=== PATIENT | female | born 1955 | race Caucasian/White ===

== ENCOUNTER 2016-11-29 12:48 | Inpatient (IN) | payer OTHER ==
[~2016-11-29] VITALS: Ht 165.1 cm; Wt 117.9 kg
[2016-11-29] VITALS (10 sets, daily range): BP systolic 107–122; BP diastolic 50–79
--- NOTE | 2016-11-29 12:55 | NUR ---
DR VALENCIA AT THE BEDSIDE FOR EVAL AND EXAM.
[2016-11-29 13:35] LABS: BILIRUBIN,DIRECT 0.1 mg/dL (0.0-0.2); BILIRUBIN,TOTAL 0.5 mg/dL (0.2-1.0); CALCIUM 7.8 mg/dL (8.5-10.1); CREATININE 0.6 mg/dL (0.6-1.3); POTASSIUM 3.7 mmol/L (3.5-5.1); TOTAL PROTEIN, SERUM 6.6 g/dL (6.4-8.2)
[2016-11-29 14:43] LABS: BASOPHILS % (AUTO) 0.6 % (0.0-2.0); EOSINOPHILS # (AUTO) 0.1 K/uL (0.0-0.7); EOSINOPHILS % (AUTO) 2.2 % (0.0-7.0); LYMPHOCYTES # (AUTO) 0.9 K/uL (0.8-4.8); LYMPHOCYTES % (AUTO) 20.8 % (20.5-51.5); MEAN CORPUSCULAR HEMOGLOBIN 18.2 uug (27.0-31.0); MEAN CORPUSCULAR HGB CONC 29 g/dL (32.0-37.0); MEAN CORPUSCULAR VOLUME 63.7 fL (81.0-99.0); MONOCYTES # (AUTO) 0.5 K/uL (0.1-1.30); MONOCYTES % (AUTO) 12.6 % (0.0-11.0); NEUTROPHILS # (AUTO) 2.7 K/uL (1.8-8.9); NEUTROPHILS % (AUTO) 63.8 % (38.5-71.5); PLATELET COUNT (AUTO) 318 K/uL (150-450); RED BLOOD CELL COUNT(AUTO) 2.71 MIL/uL (4.20-5.40); WHITE BLOOD COUNT (AUTO) 4.2 K/uL (4.0-11.2)
[2016-11-29 14:45] LABS: HEMATOCRIT 17.3 % (37.0-47.0); HEMOGLOBIN 4.9 g/dL (12.0-16.0)
[2016-11-29] MEDS ORDERED: IV NORMAL SALINE 1000 ML BAG IV ONE (14:45)
[2016-11-29 14:55] LABS: BAND % (MANUAL) 1 % (0-10); EOSINOPHILS % (MANUAL) 1 % (0-8); LYMPHOCYTES % (MANUAL) 24 % (20-40); MONOCYTES % (MANUAL) 11 % (2-10); NEUTROPHILS % (MANUAL) 61 % (42-75)
[2016-11-29 14:56] LABS: BASOPHILS % (MANUAL) 2 % (0-2)
[2016-11-29 14:57] LABS: ANISOCYTOSIS 3+; HYPOCHROMASIA 3+; PLATELET ESTIMATE ADEQU
[2016-11-29 14:58] LABS: OVALOCYTES 1+; TEAR DROP CELLS 1+
[2016-11-29] MEDS ORDERED: MAGNESIUM HYDROXIDE 30 ML LIQUID UDC PO PRN (15:00)
[2016-11-29] MEDS ORDERED: MORPHINE SULFATE 2 MG/1 ML DISP.SYRIN IV PRN (15:00)
[2016-11-29] MEDS ORDERED: ONDANSETRON 4 MG/2 ML VIAL IV PRN (15:00)
--- NOTE | 2016-11-29 15:02 | NUR ---
PT RESTING IN BED DRINKING FLUIDS, DENIES PAIN.
[2016-11-29] MEDS ORDERED: [UNRECOGNIZED DRUG - REMARK] PO (15:24)
--- NOTE | 2016-11-29 15:57 | NUR ---
BELONGING LIST COMPLETED. NOT CANDIDATE FOR MRSA.
[2016-11-29 15:58] LABS: IRON, SERUM 13 ug/dL (50-175)
--- NOTE | 2016-11-29 16:50 | NUR ---
NEW PATIENT FROM ER TO ROOM 230 AWAKE ALERT COOPERATE WELL NO SOB OR PAIN VS TAKEN STABLE ON FALL PRECAUTION CALL SCHWARTZ IN REACH AND INSTRUCTION TO CALL WHEN NEEDED BED ALARM ON
[2016-11-29] MEDS: PANTOPRAZOLE SODIUM 40 MG TABLET.DR PO SCH ×2 (17:00→19:00)
--- NOTE | 2016-11-29 17:30 | NUR ---
KEEP NPO AT THIS TIME FOR EGD TONIGHT CONSENT SIGNS BLOOD DRAWN AT BEDSIDE X1
[2016-11-29] MEDS: IV NS 1000 ML 1,000 ML IV PRN (17:43)
--- NOTE | 2016-11-29 18:10 | NUR ---
START FIRST UNIT OF BLOOD TODAY VS STABLE NO REACTION NOTED RESTING CLOSED OBSERVATION
--- NOTE | 2016-11-29 21:11 | NUR ---
Patient tolerated 1st unit PRBC. No signs of transfusion reaction noted.
--- NOTE | 2016-11-29 21:40 | NUR ---
Second unit PRBC started.
[2016-11-29] MEDS: FERROUS SULFATE 325 MG TABEC PO SCH (22:02)
[2016-11-29] MEDS ORDERED: FERROUS SULFATE 325 MG TABEC PO ONE (23:15)
--- NOTE | 2016-11-29 23:59 | NUR ---
Second unit PRBC tolerated. Vital signs are stable.
[2016-11-30] VITALS (21 sets, daily range): BP systolic 110–159; BP diastolic 64–94
--- NOTE | 2016-11-30 03:16 | NUR ---
3 units PRBC completed. Patient tolerated, no acute resp distress.
[2016-11-30 03:28] LABS: *BILIRUBIN,URIN NEGATIVE (NEGATIVE); *BLOOD, URINE NEGATIVE (NEGATIVE); *CLARITY,URINE SLIGHTLY CLOUDY (CLEAR); *COLOR,URINE YELLOW (YELLOW); *KETONES,URINE NEGATIVE (NEGATIVE); *PROTEIN,URINE NEGATIVE (NEGATIVE); *UROBILINOGEN,URINE 0.2 E.U./dl (NORMAL); NITRITE, URINE NEGATIVE (NEGATIVE); PH,URINE 6.5 (5.0-8.0); UGLUCOSE NEGATIVE (NEGATIVE)
[2016-11-30 03:30] LABS: LEUKOCYTE ESTERASE ,URINE TRACE (NEGATIVE)
[2016-11-30 03:38] LABS: BACTERIA,URINE FEW /HPF (NONE SEEN); RBC,URINE 0-3 /HPF (0-3); SQUAMOUS EPITHELIAL CELL,UR MODERATE /HPF (NONE SEEN)
--- NOTE | 2016-11-30 08:00 | NUR ---
awake alert cooperate well no pain or sob at this time ON FALL /ASPIRATION PRECAUTION CALL SCHWARTZ IN REACH
[2016-11-30 08:03] LABS: ALANINE AMINOTRANSFERASE 14 U/L (14-59); ALBUMIN 3.4 g/dL (3.4-5.0); ALKALINE PHOSPHATASE 67 U/L (50-136); ASPARTATE AMINOTRANSFERASE 10 U/L (15-37); BILIRUBIN,TOTAL 0.7 mg/dL (0.2-1.0); CALCIUM 7.7 mg/dL (8.5-10.1); CARBON DIOXIDE 26 mmol/L (21-32); CHLORIDE 109 mmol/L (98-107); CHOLESTEROL 97 mg/dL (<200); GFR > 130 mL/min (>60); GLUCOSE 109 mg/dL (74-106); HDL CHOLESTEROL 33 mg/dL (40-60); PHOSPHOROUS 4.8 mg/dL (2.5-4.9); POTASSIUM 3.8 mmol/L (3.5-5.1); SODIUM SERUM 145 mmol/L (136-145); TOTAL PROTEIN, SERUM 6.2 g/dL (6.4-8.2); TRIGLYCERIDES 67 MG/DL (30-150); UREA NITROGEN, BLOOD 4 mg/dL (7-18)
[2016-11-30 08:09] LABS: CREATININE 0.4 mg/dL (0.6-1.3)
[2016-11-30 08:18] LABS: BASOPHILS % (AUTO) 0.1 % (0.0-2.0); EOSINOPHILS # (AUTO) 0.1 K/uL (0.0-0.7); EOSINOPHILS % (AUTO) 1.9 % (0.0-7.0); LYMPHOCYTES # (AUTO) 1.2 K/uL (0.8-4.8); LYMPHOCYTES % (AUTO) 21.5 % (20.5-51.5); MEAN CORPUSCULAR HEMOGLOBIN 21.4 uug (27.0-31.0); MEAN CORPUSCULAR HGB CONC 31 g/dL (32.0-37.0); MONOCYTES # (AUTO) 0.6 K/uL (0.1-1.30); MONOCYTES % (AUTO) 9.9 % (0.0-11.0); NEUTROPHILS # (AUTO) 3.7 K/uL (1.8-8.9); NEUTROPHILS % (AUTO) 66.6 % (38.5-71.5); RED CELL DISTRIBUTION WIDTH 26.5 % (11.5-14.5)
[2016-11-30 08:26] LABS: HEMATOCRIT 24.6 % (37.0-47.0); HEMOGLOBIN 7.5 g/dL (12.0-16.0); MEAN CORPUSCULAR VOLUME 69.8 fL (81.0-99.0); PLATELET COUNT (AUTO) 196 K/uL (150-450); RED BLOOD CELL COUNT(AUTO) 3.52 MIL/uL (4.20-5.40); THYROID STIMULATING HORMONE 0.838 mIU/mL (0.358-3.740); WHITE BLOOD COUNT (AUTO) 5.6 K/uL (4.0-11.2)
[2016-11-30] MEDS: PANTOPRAZOLE SODIUM 40 MG TABLET.DR PO SCH (08:44)
[2016-11-30] MEDS: FERROUS SULFATE 325 MG TABEC PO SCH ×2 (08:44→20:53)
[2016-11-30] MEDS: ACETAMINOPHEN 325 MG TABLET PO PRN ×2 (08:45→16:06)
--- NOTE | 2016-11-30 08:50 | NUR ---
DR FUNES SEEN LAB RESULT AND ORDER 2 MORE PRBC TODAY RESTING QUIET SCHEDULE FOR EGD TODAY AT 1200PM,PT WAS INFORM
[2016-11-30 09:30] LABS: EOSINOPHILS % (MANUAL) 3 % (0-8); MONOCYTES % (MANUAL) 7 % (2-10); NEUTROPHILS % (MANUAL) 62 % (42-75)
[2016-11-30 09:33] LABS: LYMPHOCYTES % (MANUAL) 27 % (20-40); METAMYELOCYTES % 1 % (0-1); PLATELET ESTIMATE ADEQUATE
[2016-11-30 09:34] LABS: ANISOCYTOSIS 3+; HYPOCHROMASIA 2+
[2016-11-30 09:35] LABS: OVALOCYTES 2+; TEAR DROP CELLS 1+
--- NOTE | 2016-11-30 10:30 | NUR ---
BLOOD BANK WAS CALL REGARDING PRBC ORDER STATE BLOOD DOES NOT READY YET AND WILL CALL WHEN IT IS AVAILABLE
--- NOTE | 2016-11-30 11:35 | NUR ---
START FIRST UNIT OF PRBC TODAY OMAR WELL NO REACTION VS STABLE
--- NOTE | 2016-11-30 11:45 | NUR ---
TO GI LAB VIA BED CONDITION STABLE NO SOB OR PAIN
--- NOTE | 2016-11-30 12:00 | NUR ---
VS TAKEN IN OR /GI LAB WHEN PATIENT WAS GOING FOR EGD DURING BLOOD TRANSFUSION
--- NOTE | 2016-11-30 12:45 | NUR ---
BACK TO ROOM VS TAKEN STABLE STILL CONTINUE BLOOD TRANSFUSION NO N/V OR ABD PAIN START PO LUNCH ORDER C/O OF PAIN /TENDER ON IV SITE SLIGHTLY REDNESS AND SMALL BRUISE AND BUMP IV WAS D/C AT THIS TIME ,WILL RESTART A NEW LINE
--- NOTE | 2016-11-30 13:30 | NUR ---
IV START ON RT UPPER ARM #20 AND CONTINUE BLOOD TRANSFUSION EAT LUNCH WITH GOOD APPETITE
[2016-11-30] MEDS ORDERED: ETOMIDATE 20 MG/10 ML VIAL MC ONE (15:00)
[2016-11-30] MEDS ORDERED: PROPOFOL 200 MG/20 ML BOTTLE IV ONE (15:00)
[2016-11-30] MEDS ORDERED: LIDOCAINE HCL 1% 20 ML VIAL MC ONE (15:00)
--- NOTE | 2016-11-30 15:00 | NUR ---
BL TRANS FINISHED NO REACTION VS STABLE
--- NOTE | 2016-11-30 15:25 | NUR ---
START SECOND UNIT OF PRBC OMAR PROCEDURE WELL NO REACTION VS TAKEN STABLE NO PAIN OR SOB
[2016-11-30] MEDS: IV NS 1000 ML 1,000 ML IV PRN (16:08)
[2016-11-30 16:44] LABS: *OCCULT BLOOD STOOL POSITIVE (NEGATIVE)
--- NOTE | 2016-11-30 17:00 | NUR ---
RESTING QUIET NO ACUTE DISTRESS SAFETY MEASURE PROVIDED CALL SCHWARTZ WITHIN REACH
--- NOTE | 2016-11-30 18:00 | NUR ---
BLOOD TRANSFUSION COMPLETE NO REACTION VS STABLE NO SOB OR PAIN EAT DINNER WITH GOOD APPETITE
--- NOTE | 2016-11-30 20:45 | NUR ---
Patient resting in bed, no respiratory distress, no SOB. Patient remains stable, afebrile. Will continue to monitor.
[2016-12-01] VITALS (9 sets, daily range): BP systolic 136–156; BP diastolic 77–105
[2016-12-01] MEDS: ACETAMINOPHEN 325 MG TABLET PO PRN ×2 (03:52→13:12)
[2016-12-01 07:27] LABS: BASOPHILS # (AUTO) 0.1 K/uL (0.0-0.2); BASOPHILS % (AUTO) 0.8 % (0.0-2.0); EOSINOPHILS # (AUTO) 0.2 K/uL (0.0-0.7); EOSINOPHILS % (AUTO) 3.4 % (0.0-7.0); HEMATOCRIT 27.5 % (37.0-47.0); HEMOGLOBIN 8.7 g/dL (12.0-16.0); LYMPHOCYTES # (AUTO) 1.1 K/uL (0.8-4.8); LYMPHOCYTES % (AUTO) 14.6 % (20.5-51.5); MEAN CORPUSCULAR HEMOGLOBIN 22.9 uug (27.0-31.0); MEAN CORPUSCULAR HGB CONC 32 g/dL (32.0-37.0); MEAN CORPUSCULAR VOLUME 72.7 fL (81.0-99.0); MONOCYTES # (AUTO) 0.9 K/uL (0.1-1.30); MONOCYTES % (AUTO) 12.2 % (0.0-11.0); PLATELET COUNT (AUTO) 255 K/uL (150-450); RED BLOOD CELL COUNT(AUTO) 3.78 MIL/uL (4.20-5.40); RED CELL DISTRIBUTION WIDTH 27.3 % (11.5-14.5); WHITE BLOOD COUNT (AUTO) 7.3 K/uL (4.0-11.2)
[2016-12-01 07:45] LABS: ALBUMIN 3.3 g/dL (3.4-5.0); BILIRUBIN,TOTAL 0.6 mg/dL (0.2-1.0); CALCIUM 7.4 mg/dL (8.5-10.1); PHOSPHOROUS 5.3 mg/dL (2.5-4.9); TOTAL PROTEIN, SERUM 6.1 g/dL (6.4-8.2)
[2016-12-01 07:48] LABS: CREATININE 0.5 mg/dL (0.6-1.3)
--- NOTE | 2016-12-01 07:51 | NUR ---
PT IS SLEEPING IN BED COMFORTABLY. NO S/S OF RESPIRATORY DISTRESS NOTED.NO PAIN NOTED. ALL SAFETY NEEDS ARE MET. WILL CONTINUE TO MONITOR.
[2016-12-01] MEDS: PANTOPRAZOLE SODIUM 40 MG TABLET.DR PO SCH (08:39)
[2016-12-01] MEDS: FERROUS SULFATE 325 MG TABEC PO SCH ×2 (08:39→20:59)
--- NOTE | 2016-12-01 08:43 | NUR ---
ADVISED DR. FERNANDEZ THAT OCCUPATIONAL HEALTH AND SAFETY OFFICER NURSES TRIED MULTIPLE TIMES TO ESTABLISH IV ACCESS. PER DR. FERNANDEZ LONG THERE'S NO OTHER IV MEDS OTHER THAN NS FLUIDS, "IT'S OK FOR NOW NOT TO HAVE IV ACCESS". PT STATES THAT SHE HAD BOWEL MOVEMENT ON 11/30/2016 AND "GAVE THE SPECIMEN CUP YESTERDAY". ADVISED THE PT THAT THERE'S MEDICATIONS FOR CONSTIPATION IN CASE IF THE PT FEELS THAT SHE HAS CONSTIPATION, PT REUSED FOR NOW.
[2016-12-01 08:55] LABS: EOSINOPHILS % (MANUAL) 5 % (0-8); LYMPHOCYTES % (MANUAL) 13 % (20-40); MONOCYTES % (MANUAL) 12 % (2-10); NEUTROPHILS % (MANUAL) 70 % (42-75)
[2016-12-01 08:56] LABS: ANISOCYTOSIS 2+; PLATELET ESTIMATE ADEQU
[2016-12-01] MEDS: METOPROLOL TARTRATE 25 MG TABLET PO SCH ×2 (14:30→21:00)
--- NOTE | 2016-12-01 16:51 | NUR ---
PT RECEIVED 1 UNIT OF BLOOD, NO TRANSFUSION REACTIONS ARE NOTED.
--- NOTE | 2016-12-01 19:03 | NUR ---
PT IS LAYING IN BED COMFORTABLY. NO S/S OF RESPIRATORY DISTRESS NOTED. ALL SAFETY NEEDS ARE MET. IV INTACT/PATENT. NO PAIN NOTED.
--- NOTE | 2016-12-01 21:00 | NUR ---
Patients IV line got pulled out. Placed a new line in her right hand w/ [id number]. IVF maintained.
[2016-12-01] MEDS: IV NS 1000 ML 1,000 ML IV PRN (21:48)
--- NOTE | 2016-12-02 04:30 | NUR ---
Patient asleep, no respiratory distress, no c/o of discomfort/pain at this time. IVF maintained. IV site on R hand 20g intact, no signs of infiltration. Call light within reach, bed in low position. Will continue to monitor.
[2016-12-02 05:16] VITALS: BP 147/93
[2016-12-02 06:45] LABS: BASOPHILS % (AUTO) 0.4 % (0.0-2.0); EOSINOPHILS # (AUTO) 0.2 K/uL (0.0-0.7); EOSINOPHILS % (AUTO) 3.1 % (0.0-7.0); HEMATOCRIT 30.1 % (37.0-47.0); HEMOGLOBIN 9.6 g/dL (12.0-16.0); LYMPHOCYTES # (AUTO) 1.4 K/uL (0.8-4.8); LYMPHOCYTES % (AUTO) 21.9 % (20.5-51.5); MEAN CORPUSCULAR HEMOGLOBIN 23.6 uug (27.0-31.0); MEAN CORPUSCULAR HGB CONC 32 g/dL (32.0-37.0); MEAN CORPUSCULAR VOLUME 73.6 fL (81.0-99.0); MONOCYTES # (AUTO) 0.6 K/uL (0.1-1.30); MONOCYTES % (AUTO) 9.9 % (0.0-11.0); NEUTROPHILS # (AUTO) 4.2 K/uL (1.8-8.9); NEUTROPHILS % (AUTO) 64.7 % (38.5-71.5); PLATELET COUNT (AUTO) 220 K/uL (150-450); RED BLOOD CELL COUNT(AUTO) 4.09 MIL/uL (4.20-5.40); RED CELL DISTRIBUTION WIDTH 27.2 % (11.5-14.5); WHITE BLOOD COUNT (AUTO) 6.4 K/uL (4.0-11.2)
[2016-12-02 07:03] LABS: ALBUMIN 3.4 g/dL (3.4-5.0); BILIRUBIN,TOTAL 0.6 mg/dL (0.2-1.0); CALCIUM 8.1 mg/dL (8.5-10.1); PHOSPHOROUS 4.9 mg/dL (2.5-4.9); POTASSIUM 4.1 mmol/L (3.5-5.1); TOTAL PROTEIN, SERUM 6.3 g/dL (6.4-8.2)
[2016-12-02 07:12] LABS: CREATININE 0.5 mg/dL (0.6-1.3)
--- NOTE | 2016-12-02 07:56 | NUR ---
PT IS LAYING IN BED COMFORTABLY.NO S/S OF RESPIRATORY DISTRESS NOTED. NO PAIN NOTED. MIDLINE INTACT/PATENT. ALL SAFETY NEEDS ARE MET. WILL CONTINUE TO MONITOR.
[2016-12-02] MEDS: PANTOPRAZOLE SODIUM 40 MG TABLET.DR PO SCH (09:50)
[2016-12-02] MEDS: FERROUS SULFATE 325 MG TABEC PO SCH (09:50)
[2016-12-02] MEDS: METOPROLOL TARTRATE 25 MG TABLET PO SCH (09:51)
[2016-12-02 11:13] VITALS: BP 158/104
[2016-12-02 11:47] LABS: ANISOCYTOSIS 3+; BAND % (MANUAL) 2 % (0-10); EOSINOPHILS % (MANUAL) 2 % (0-8); HYPOCHROMASIA 1+; LYMPHOCYTES % (MANUAL) 25 % (20-40); MONOCYTES % (MANUAL) 9 % (2-10); NEUTROPHILS % (MANUAL) 62 % (42-75); PLATELET ESTIMATE ADEQUATE
[2016-12-02] MEDS: ACETAMINOPHEN 325 MG TABLET PO PRN (14:52)
[2016-12-02 15:06] VITALS: BP 159/67
[2016-12-02] MEDS ORDERED: PANT40TA2 PO (18:00)
[2016-12-02] MEDS ORDERED: METO50TA3 PO (18:00)
[2016-12-02] MEDS ORDERED: FERR325T28 PO (18:00)
[2016-12-02] MEDS ORDERED: METOPROLOL TARTRATE 25 MG TABLET PO ONE (18:45)
--- NOTE | 2016-12-02 18:46 | NUR ---
PT'S BLOOD PRESSURE IS INCREASED 159/69. LET DR. FUNES KNOW, PER DR. OLEA METOPROLOL 25MG ONE TIME ORDER NOW.
[2016-12-02 18:57] VITALS: BP 158/68
--- NOTE | 2016-12-02 19:06 | NUR ---
PT SIGNED EDUCATION MATERIAL, EDUCATION IS PROVIDED. NO S/S OF RESPIRATORY DISTRESS NOTED. NO PAIN NOTED. ALL SAFETY NEEDS ARE MET. IV INTACT/PATENT. WILL ADVISE PM SHIFT NURSE TO FINISH BELONGINGS LIST, AND MEDICAL RELEASE FORM ALONG WITH TAKING LAST V/S.
--- NOTE | 2016-12-02 21:57 | NUR ---
Patient discharged to home @ 2153. Patient is awake & alert and reports no distress or pain.Lung sounds clear, and unlabored. Skin is dry, pink, warm and intact. PERRLA. Patient ambulates with steady gate. A taxi was called, and patient was given a taxi voucher. Patient was transported from her room,to the taxi in a wheelchair.
== END 2016-12-02 21:45 | disposition home or self-care (01) | DRG 253 ==
LOC: ER 12:52 → TELE 15:52 → MED 11-30 13:55
PROVIDERS: ADMIT Internal Medicine; ATTEND Internal Medicine
PROC: 30233N1 Transfusion of Nonautologous Red Blood Cells into Peripheral Vein, Percutaneous Approach (ICD-10-PCS; principal; 2016-11-29)
PROC: 0DB68ZX Excision of Stomach, Via Natural or Artificial Opening Endoscopic, Diagnostic (ICD-10-PCS; 2016-11-30)
DX: K92.2 Gastrointestinal hemorrhage, unspecified (principal); G92 Toxic encephalopathy; Z68.41 Body mass index [BMI] 40.0-44.9, adult; D68.59 Other primary thrombophilia; E83.51 Hypocalcemia; E66.01 Morbid (severe) obesity due to excess calories; R42 Dizziness and giddiness; F31.9 Bipolar disorder, unspecified; K44.9 Diaphragmatic hernia without obstruction or gangrene; D50.0 Iron deficiency anemia secondary to blood loss (chronic); F41.9 Anxiety disorder, unspecified; R10.9 Unspecified abdominal pain; R53.1 Weakness; R51 Headache; K31.7 Polyp of stomach and duodenum; I10 Essential (primary) hypertension
CPT/HCPCS: 36415; 71010; 83550; 83690; 83735; 84100; 84443; 85025; 85610; 85730; 86850; 86900; 86901; 86920; 87086; 93005; 97001; A4217; A4663; J3490; J7030; J7040; P9016-BL; P9021

== ENCOUNTER 2017-01-03 14:15 | Emergency (ER) | payer OTHER ==
[~2017-01-03] VITALS: Ht 170.2 cm; Wt 113.4 kg
[~2017-01-03 14:15] MED LIST: FERR325T28 PO; METO50TA3 PO; PANT40TA2 PO; [UNRECOGNIZED DRUG - REMARK] PO
--- NOTE | 2017-01-03 14:48 | NUR ---
dr griffith at the bedside for eval and exam.
[2017-01-03 15:30] LABS: BASOPHILS % (AUTO) 0.7 % (0.0-2.0); EOSINOPHILS # (AUTO) 0.1 K/uL (0.0-0.7); EOSINOPHILS % (AUTO) 2.1 % (0.0-7.0); HEMATOCRIT 30.8 % (31.2-41.9); HEMOGLOBIN 9.8 g/dL (10.9-14.3); LYMPHOCYTES # (AUTO) 1.2 K/uL (20.0-40.0); LYMPHOCYTES % (AUTO) 18.5 % (20.5-51.5); MEAN CORPUSCULAR HEMOGLOBIN 22.8 uug (24.7-32.8); MEAN CORPUSCULAR HGB CONC 32 g/dL (32.3-35.6); MEAN CORPUSCULAR VOLUME 71.8 fL (75.5-95.3); MONOCYTES # (AUTO) 0.5 K/uL (2.0-10.0); NEUTROPHILS # (AUTO) 4.8 K/uL (1.8-8.9); NEUTROPHILS % (AUTO) 70.7 % (38.5-71.5); PLATELET COUNT (AUTO) 362 K/uL (179-408); RED CELL DISTRIBUTION WIDTH 22.1 % (12.3-17.7); WHITE BLOOD COUNT (AUTO) 6.6 K/uL (3.8-11.8)
[2017-01-03 15:33] LABS: CALCIUM 8.5 mg/dL (8.5-10.1); CREATININE 0.7 mg/dL (0.6-1.3); POTASSIUM 3.3 mmol/L (3.5-5.1)
[2017-01-03 15:45] LABS: ALBUMIN 3.7 g/dL (3.4-5.0); BILIRUBIN,DIRECT 0.1 mg/dL (0.0-0.2); BILIRUBIN,TOTAL 0.4 mg/dL (0.2-1.0); TOTAL PROTEIN, SERUM 6.7 g/dL (6.4-8.2)
[2017-01-03 15:49] LABS: ANISOCYTOSIS 2+; HYPOCHROMASIA 1+; OVALOCYTES 1+; TEAR DROP CELLS 1+
[2017-01-03] MEDS ORDERED: POTASSIUM CHLORIDE 20 MEQ TAB.PRT.SR PO ONE (16:00)
--- NOTE | 2017-01-03 16:09 | NUR ---
IV removed. Catheter intact and site benign. Pressure and 4x4 gauze applied to site. No bleeding noted.
[2017-01-03 16:10] VITALS: BP 115/63
--- NOTE | 2017-01-03 16:11 | NUR ---
Patient discharged to home in stable conditon. Written and verbal after care instructions given. Patient verbalizes understanding of instructions.
[2017-01-03] MEDS ORDERED: POTASSIUM CHLORIDE 20 MEQ TAB.PRT.SR ONE (16:13)
== END 2017-01-03 16:11 | disposition home or self-care (01) ==
LOC: ER 14:15
DX: E87.6 Hypokalemia (principal); I10 Essential (primary) hypertension; K21.9 Gastro-esophageal reflux disease without esophagitis; F31.9 Bipolar disorder, unspecified; D50.9 Iron deficiency anemia, unspecified; E66.01 Morbid (severe) obesity due to excess calories
CPT/HCPCS: 36415; 70030-TC; 71010; 85025; 85730; 93005; A4663; J7030

== ENCOUNTER 2021-12-21 19:17 | Inpatient (IN) | payer OTHER ==
[~2021-12-21] VITALS: Ht 170.2 cm; Wt 95.3 kg
[~2021-12-21 19:17] MED LIST changes: +METO50TA16 PO; -METO50TA3 PO
--- NOTE | 2021-12-21 19:41 | NUR ---
pt in room 3a c/o sob body aches x 1month.
--- NOTE | 2021-12-21 19:43 | NUR ---
Dr. Early at bedside for MSE.
[2021-12-21] MEDS ORDERED: IV NORMAL SALINE 500 ML BAG IV ONE (20:00)
[2021-12-21 20:37] LABS: MEAN CORPUSCULAR VOLUME 71.3 fL (75.5-95.3); PLATELET COUNT (AUTO) 243 K/uL (179-408)
[2021-12-21 20:43] LABS: HEMATOCRIT 15.7 % (31.2-41.9)
[2021-12-21 20:51] LABS: BILIRUBIN,DIRECT 0.1 mg/dL (0.0-0.2); BILIRUBIN,TOTAL 0.4 mg/dL (0.2-1.0); CREATININE 0.8 mg/dL (0.6-1.3); POTASSIUM 3.4 mmol/L (3.5-5.1); TOTAL PROTEIN, SERUM 6.2 g/dL (6.4-8.2)
--- NOTE | 2021-12-21 21:02 | NUR ---
received a call from Alexa from [facility] gave update on condition and labs. her call back number is [phone]
--- NOTE | 2021-12-21 21:21 | NUR ---
MULUGETA TRINIDAD PAGED FOR PANEL CALL.
--- NOTE | 2021-12-21 21:25 | NUR ---
Larry Cortez SOFTWARE SECURITY CONSULTANT called back and is speaking with Dr. Early.
[2021-12-21] MEDS ORDERED: PANTOPRAZOLE SODIUM IV 80 MG in IV DEXTROSE 5% 100 ML IV ONE (21:30)
--- NOTE | 2021-12-21 21:36 | NUR ---
call to third floor Pedro RN states he is not ready for report he will call back. pt to go to room 318
[2021-12-21] MEDS ORDERED: PANTOPRAZOLE SODIUM 40 MG VIAL ONE (21:42)
[2021-12-21] MEDS ORDERED: ONDANSETRON 4 MG/2 ML VIAL IV PRN (21:45)
[2021-12-21] MEDS ORDERED: MAGNESIUM HYDROXIDE 30 ML LIQUID UDC PO PRN (21:45)
[2021-12-21] MEDS ORDERED: ACETAMINOPHEN 325 MG TABLET PO PRN (21:45)
[2021-12-21] MEDS ORDERED: REMEDY ESSENTIAL ZINC PASTE 113 GM TP PRN (21:45)
--- NOTE | 2021-12-21 22:02 | NUR ---
call to third floor, they are unable to locate Pedro SU, states they will tell him to call ER when they find him.
--- NOTE | 2021-12-21 22:10 | NUR ---
report given to Pedro SU pt to go to room 318.
[2021-12-21 22:20] LABS: IRON, SERUM 16 ug/dL (50-175)
--- NOTE | 2021-12-21 23:14 | NUR ---
pt transferred to room 318 via [facility] with all belongings, SHARLENE Vasquez at bedside to receive the pt. Pt continues with blood transfusion. After pt was placed to bed she then got to a bsc to provide a stool sample.
--- NOTE | 2021-12-21 23:36 | NUR ---
received pt with ongoing blood transfusion then to be followed by potassium infusion; Dr Martell ok'd to have midline insertion; per ER, pt is a hard stick.
--- NOTE | 2021-12-21 23:38 | NUR ---
Called ER; reviewed chart; pt may need another line; instructed ED to start blood transfusion; Addendum: 12/21/21 at 2340 by DIMITRI GARCIA RN time for this charting is [id number]
--- NOTE | 2021-12-21 23:41 | NUR ---
blood started thru paper charting; will continue the form
[2021-12-21 23:45] VITALS: BP 115/55
[2021-12-22] VITALS (11 sets, daily range): BP systolic 107–144; BP diastolic 51–79
[2021-12-22] MEDS: POTASSIUM CHLORIDE 50 ML IV SCH ×2 (02:27→03:27)
--- NOTE | 2021-12-22 04:00 | NUR ---
re-informed DR Logan regarding h/h ie 4.6 and only got one unit PRBC; another PRBC ordered and to be transfused;
[2021-12-22 06:32] LABS: BAND % (MANUAL) 2 % (0-10); LYMPHOCYTES % (MANUAL) 14 % (20-40); METAMYELOCYTES % 3 % (0-1); MONOCYTES % (MANUAL) 10 % (2-10); NEUTROPHILS % (MANUAL) 71 % (42-75)
--- NOTE | 2021-12-22 07:03 | NUR ---
tolerating 2nd unit of PRBC; needs attended; patient assisted to bedside commode; awaiting Midline insertion; supplies at bedside; continue to monitor.
[2021-12-22] MEDS ORDERED: PANTOPRAZOLE SODIUM IV 40 MG in IV DEXTROSE 5% 100 ML IV SCH (09:00)
[2021-12-22 09:16] LABS: CREATININE 0.7 mg/dL (0.6-1.3); MAGNESIUM 2.1 mg/dL (1.8-2.4); PHOSPHOROUS 3.9 mg/dL (2.5-4.9); POTASSIUM 3.7 mmol/L (3.5-5.1)
[2021-12-22 09:24] LABS: MEAN CORPUSCULAR HEMOGLOBIN 22.9 uug (24.7-32.8); MEAN CORPUSCULAR VOLUME 74.4 fL (75.5-95.3); PLATELET COUNT (AUTO) 214 K/uL (179-408)
[2021-12-22 09:30] LABS: HEMATOCRIT 20.6 % (31.2-41.9)
[2021-12-22] MEDS: PANTOPRAZOLE SODIUM 40 MG VIAL IV SCH (09:32)
--- NOTE | 2021-12-22 16:00 | NUR ---
Received patient awake in her room. A/O X 3 - 4 to person, place, environment. Pt. is compliant with medications. Hgb is 6.3, Forest Fire Equipment Operator ordered RBC. Vital signs were taken before infusion, 15 minutes after, within normal limits, no allergic reaction. Pt. is receiving O positive blood, patient will be monitored. Pt. has a midline insertion. Stool was collected around 15:00. Ambulates with assistance. NKA. Room air. Fall and safety precautions implemented.
[2021-12-22 17:02] LABS: *OCCULT BLOOD STOOL POSITIVE (NEGATIVE)
[2021-12-22] MEDS ORDERED: IOHEXOL 300MG/ML 100 ML INFUS..BTL ONE (18:38)
[2021-12-22] MEDS ORDERED: SWABABLE VALVE TRANSFER SET EA MC ONE (18:38)
--- NOTE | 2021-12-22 18:52 | NUR ---
Dr. Echavarria ordered contrasted tomography abdomen/ pelvis with contrast. Patient stated "I don't know to each question in the questionnaire. Patient also stated that she has done this procedure before, and she agreed to sign the consent and be aware of it.
--- NOTE | 2021-12-22 19:37 | NUR ---
SCANNED PATIENT AROUND 1900 WITH CONTRAST, THERE WAS A GLITCH WITH THE CT UNIT THAT RESULTED IN UN DIAGNOSTIC IMAGES AND CAN NOT SEND TO RADIOLOGIST. INFORMED HER NURSE
--- NOTE | 2021-12-22 20:28 | NUR ---
Pt went for CT of abdomen; per cath lab radiological technologist, pt was given the dye but the machine broke; DR Echavarria to be informed.
[2021-12-23 00:03] VITALS: BP 113/56
[2021-12-23 04:24] VITALS: BP 132/73
[2021-12-23 06:37] LABS: HEMATOCRIT 23.4 % (31.2-41.9); MEAN CORPUSCULAR HEMOGLOBIN 24.2 uug (24.7-32.8); MEAN CORPUSCULAR VOLUME 75.6 fL (75.5-95.3); PLATELET COUNT (AUTO) 206 K/uL (179-408)
[2021-12-23 06:57] LABS: CREATININE 0.6 mg/dL (0.6-1.3); PHOSPHOROUS 4.6 mg/dL (2.5-4.9); POTASSIUM 3.7 mmol/L (3.5-5.1)
--- NOTE | 2021-12-23 08:00 | NUR ---
Received patient laying in bed. Denies SOB but reports pain in the abd. CT of the ABD was ordered but CT machine is not working. I called CT dept and they don't have an idea of when it will get fixed. TELE is SR at 66. AM vitals are WNL. Pt is on clear liq diet. USP assessment done, no skin issues noted. Safety initiated. Call light within reach. Will continue to monitor.
[2021-12-23] MEDS: PANTOPRAZOLE SODIUM 40 MG VIAL IV SCH (08:58)
[2021-12-23 12:16] VITALS: BP 136/83
[2021-12-23 15:40] VITALS: BP 141/80
[2021-12-23] MEDS ORDERED: IOHEXOL 350 100 ML INFUS..BTL ONE (18:12)
[2021-12-23] MEDS ORDERED: SWABABLE VALVE TRANSFER SET EA MC ONE (18:12)
--- NOTE | 2021-12-23 18:46 | NUR ---
Patient afebrile t/o shift. Denies pain and SOB at the moment. SR at 66 in the monitor. Transport is here to take pt to [facility], consent was signed, IV site is patent, requisition signed and faxed to [facility]. Pt is coming back to [facility] after CT. No new skin issues noted. All meds given as ordered. All needs met. Vitals remain WNL. Safety and comfort measures-maintained t/o shift.
--- NOTE | 2021-12-23 20:25 | NUR ---
Patient back from [facility] for Ct via gurney in no acute distress noted.Denies pain or discomfort.Midline patent and intact on right upper arm.NSr on tele. Call light with in reach. Will continue to monitor.
[2021-12-23 20:50] VITALS: BP 133/80
[2021-12-24 00:10] VITALS: BP 128/72
[2021-12-24 04:48] VITALS: BP 152/84
[2021-12-24 06:50] LABS: HEMATOCRIT 22.7 % (31.2-41.9); MEAN CORPUSCULAR HEMOGLOBIN 23.8 uug (24.7-32.8); MEAN CORPUSCULAR VOLUME 75.7 fL (75.5-95.3); PLATELET COUNT (AUTO) 191 K/uL (179-408)
[2021-12-24 07:13] LABS: THYROID STIMULATING HORMONE 1.418 mIU/mL (0.358-3.740)
[2021-12-24 07:17] LABS: CREATININE 0.6 mg/dL (0.6-1.3); MAGNESIUM 1.9 mg/dL (1.8-2.4); PHOSPHOROUS 4.7 mg/dL (2.5-4.9); POTASSIUM 3.5 mmol/L (3.5-5.1)
--- NOTE | 2021-12-24 08:12 | NUR ---
Pt is a/ox 4, critical lab value of hgb 7.1 reported by lab. has been notified. standing order to transfuse blood if hgb < 7. No active bleeding reported this morning, no BM today thus far. Pt is unsure if stool was bloody last night. Will continue to monitor.
[2021-12-24] MEDS: PANTOPRAZOLE SODIUM 40 MG VIAL IV SCH (10:02)
[2021-12-24 12:00] VITALS: BP 131/84
[2021-12-24] MEDS ORDERED: CYANOCOBALAMIN 1000 MCG/ML VIAL SUBCUT SCH (13:30)
--- NOTE | 2021-12-24 13:36 | NUR ---
Pt wants to leave AMA. All health information educated on and explained risks of leaving in current condition. DEVIL TENDER and nurse both explained that she has consults and procedures pending for her continued care. Pt stated that she wants to go home and does not want to stay at the hospital anymore. AMA form signed. Belongings signed for and in hand. IV sites and ID bands removed.
--- NOTE | 2021-12-24 13:43 | NUR ---
Pt left MD TAVO has been notified. Pt is ambulatory, stated she lives alone and will be taking the bus. Pt stated she will follow up with primary care physician tomorrow and ask for EGD to be done by Primary. Educated to follow up with oncology and GI outpatient. Pt verbalized understanding.
[2021-12-24] MEDS ORDERED: SOD FERRIC GLUC COMPLX/SUCROSE 125 MG in IV NORMAL SALINE 100 ML IV SCH (14:00)
[2021-12-25 07:06] LABS: *IMMUNOGLOBULIN G, SERUM 590 mg/dL (586-1602); IMMUNOGLOBULIN A, SERUM 129 mg/dL (87-352); IMMUNOGLOBULIN M, SERUM 39 mg/dL (26-217)
[2021-12-26 08:06] LABS: A/G RATIO 1.3 (0.7-1.7); ALBUMIN 2.9 g/dL (2.9-4.4); ALPHA-1-GLOBULIN 0.3 g/dL (0.0-0.4); ALPHA-2-GLOBULIN 0.5 g/dL (0.4-1.0); BETA GLOBULIN 0.8 g/dL (0.7-1.3); GAMMA GLOBULIN 0.6 g/dL (0.4-1.8); GLOBULIN, TOTAL 2.2 g/dL (2.2-3.9); M-SPIKE Not Observed g/dL (Not Observed)
== END 2021-12-24 13:40 | disposition left against medical advice (07) | DRG 241 ==
LOC: ER 19:21 → MEDSURG3 22:14 → TELE3 23:09
PROVIDERS: ADMIT Internal Medicine; ATTEND Registered Nurse
DX: K25.4 Chronic or unspecified gastric ulcer with hemorrhage (principal); I71.02 Dissection of abdominal aorta; I27.20 Pulmonary hypertension, unspecified; E83.51 Hypocalcemia; F25.0 Schizoaffective disorder, bipolar type; D50.9 Iron deficiency anemia, unspecified; E11.9 Type 2 diabetes mellitus without complications; E66.01 Morbid (severe) obesity due to excess calories; Z68.32 Body mass index [BMI] 32.0-32.9, adult; Z20.822 Contact with and (suspected) exposure to COVID-19; E53.8 Deficiency of other specified B group vitamins; E78.5 Hyperlipidemia, unspecified; E87.6 Hypokalemia; I25.10 Atherosclerotic heart disease of native coronary artery without angina pectoris; K21.9 Gastro-esophageal reflux disease without esophagitis; K44.9 Diaphragmatic hernia without obstruction or gangrene; J44.9 Chronic obstructive pulmonary disease, unspecified; R53.1 Weakness; R19.5 Other fecal abnormalities; I10 Essential (primary) hypertension; R93.5 Abnormal findings on diagnostic imaging of other abdominal regions, including retroperitoneum; D62 Acute posthemorrhagic anemia; M81.0 Age-related osteoporosis without current pathological fracture
CPT/HCPCS: 36415; 70030-TC; 82378; 82747; 82784; 83550; 83735; 84100; 84155; 84165; 84443; 85014; 85025; 85730; 86334; 86850; 86900; 86901; 86920; 89055; A4663; C9113; G0378; J2916; J3480; J7040; P9016; Q9967

== ENCOUNTER 2024-09-18 13:26 | Emergency (ER) | payer MEDICARE, OTHER ==
[~2024-09-18] VITALS: Ht 167.6 cm; Wt 104.3 kg
[~2024-09-18 13:26] MED LIST changes: -[UNRECOGNIZED DRUG - REMARK] PO
[2024-09-18 14:24] LABS: BASOPHILS % (AUTO) 0.6 % (0.0-2.0); HEMATOCRIT 28.7 % (31.2-41.9); HEMOGLOBIN 9.3 g/dL (10.9-14.3); LYMPHOCYTES # (AUTO) 0.6 K/uL (0.8-4.8); LYMPHOCYTES % (AUTO) 13.8 % (20.5-51.5); MEAN CORPUSCULAR HEMOGLOBIN 26.3 uug (24.7-32.8); MEAN CORPUSCULAR HGB CONC 33 g/dL (32.3-35.6); MEAN CORPUSCULAR VOLUME 80.9 fL (75.5-95.3); MONOCYTES # (AUTO) 0.9 K/uL (0.1-1.30); MONOCYTES % (AUTO) 20.2 % (0.0-11.0); NEUTROPHILS # (AUTO) 2.8 K/uL (1.8-8.9); NEUTROPHILS % (AUTO) 65.4 % (38.5-71.5); PLATELET COUNT (AUTO) 250 K/uL (179-408); RED BLOOD CELL COUNT(AUTO) 3.55 MIL/uL (3.63-4.92); RED CELL DISTRIBUTION WIDTH 15.4 % (12.3-17.7); WHITE BLOOD COUNT (AUTO) 4.3 K/uL (3.8-11.8)
[2024-09-18 14:30] LABS: DIFFERENTIAL COMMENT 1
[2024-09-18 14:36] LABS: AMMONIA < 10 umol/L (11-32)
[2024-09-18 14:50] LABS: CALCIUM 8.4 mg/dL (8.5-10.1); CARBON DIOXIDE 27 mmol/L (21-32); CHLORIDE 104 mmol/L (98-107); GLUCOSE 101 mg/dL (74-106); POTASSIUM 3.7 mmol/L (3.5-5.1); SODIUM SERUM 142 mmol/L (136-145); UREA NITROGEN, BLOOD 15 mg/dL (7-18)
[2024-09-18 14:55] LABS: ALANINE AMINOTRANSFERASE 15 U/L (14-59); ALBUMIN 3.5 g/dL (3.4-5.0); ALKALINE PHOSPHATASE 97 U/L (50-136); ASPARTATE AMINOTRANSFERASE 16 U/L (15-37); BILIRUBIN,DIRECT 0.1 mg/dL (0.0-0.2); BILIRUBIN,TOTAL 0.4 mg/dL (0.2-1.0); LIPASE 28 U/L (16-77); TOTAL PROTEIN, SERUM 6.9 g/dL (6.4-8.2)
[2024-09-18 14:58] LABS: EOSINOPHILS % (MANUAL) 1 % (0-8); LYMPHOCYTES % (MANUAL) 14 % (20-40); MONOCYTES % (MANUAL) 20 % (2-10); NEUTROPHILS % (MANUAL) 65 % (42-75); PLATELET ESTIMATE ADEQUATE
[2024-09-18 14:59] LABS: ANISOCYTOSIS 1+
[2024-09-18] MEDS: IV NORMAL SALINE 1000 ML BAG IV ONE (16:04)
[2024-09-18] MEDS ORDERED: METOCLOPRAMIDE HCL 10 MG/2 ML VIAL ONE (18:42)
[2024-09-18] MEDS ORDERED: KETOROLAC TROMETHAMINE 15 MG INJ ONE (18:42)
[2024-09-18] MEDS: METOCLOPRAMIDE HCL 10 MG/2 ML VIAL IV ONE (18:51)
[2024-09-18] MEDS: KETOROLAC TROMETHAMINE 15 MG INJ IVP ONE (18:52)
[2024-09-18] MEDS ORDERED: ONDA4TAB11 PO (21:16)
[2024-09-18 22:01] VITALS: BP 148/86; O2SAT 93
== END 2024-09-18 21:35 | disposition home or self-care (01) ==
LOC: ER 13:26
DX: E86.0 Dehydration (principal); R11.2 Nausea with vomiting, unspecified; R19.7 Diarrhea, unspecified; R07.89 Other chest pain; R09.89 Other specified symptoms and signs involving the circulatory and respiratory systems; E66.01 Morbid (severe) obesity due to excess calories; F25.9 Schizoaffective disorder, unspecified; I11.0 Hypertensive heart disease with heart failure; I25.10 Atherosclerotic heart disease of native coronary artery without angina pectoris; I27.20 Pulmonary hypertension, unspecified; I50.9 Heart failure, unspecified; J44.9 Chronic obstructive pulmonary disease, unspecified; Z68.32 Body mass index [BMI] 32.0-32.9, adult; Z79.899 Other long term (current) drug therapy; Z60.2 Problems related to living alone
CPT/HCPCS: 99285; 74176; 96374; 71045; 96361; 96375; 80076; 80048; 82140; 83880; 83690; 85025; 85730; 86850; 86900; 86901; 87040 ×2; 84484 ×2; 36415; 93005; 83605; 85007; J1885; J2765; J7040; 70030-TC; A4606; A4663

== ENCOUNTER 2024-10-15 16:05 | Inpatient (IN) | payer MEDICARE, OTHER ==
[~2024-10-15] VITALS: Ht 154.9 cm; Wt 109.4 kg
[~2024-10-15 16:05] MED LIST changes: +ONDA4TAB11 PO
[2024-10-15 18:45] LABS: BASOPHILS % (AUTO) 0.4 % (0.0-2.0); EOSINOPHILS # (AUTO) 0.1 K/uL (0.0-0.7); EOSINOPHILS % (AUTO) 1.5 % (0.0-7.0); LYMPHOCYTES # (AUTO) 1.1 K/uL (0.8-4.8); LYMPHOCYTES % (AUTO) 20.9 % (20.5-51.5); MEAN CORPUSCULAR HEMOGLOBIN 23.6 uug (24.7-32.8); MEAN CORPUSCULAR HGB CONC 31 g/dL (32.3-35.6); MONOCYTES # (AUTO) 0.7 K/uL (0.1-1.30); MONOCYTES % (AUTO) 13.3 % (0.0-11.0); NEUTROPHILS # (AUTO) 3.4 K/uL (1.8-8.9); NEUTROPHILS % (AUTO) 63.9 % (38.5-71.5); PLATELET COUNT (AUTO) 312 K/uL (179-408); RED BLOOD CELL COUNT(AUTO) 2.55 MIL/uL (3.63-4.92); RED CELL DISTRIBUTION WIDTH 17.3 % (12.3-17.7); WHITE BLOOD COUNT (AUTO) 5.3 K/uL (3.8-11.8)
[2024-10-15 18:52] LABS: CALCIUM 7.9 mg/dL (8.5-10.1); CARBON DIOXIDE 30 mmol/L (21-32); CHLORIDE 108 mmol/L (98-107); CREATININE 0.7 mg/dL (0.6-1.3); DIFFERENTIAL COMMENT 1; GLUCOSE 106 mg/dL (74-106); POTASSIUM 3.7 mmol/L (3.5-5.1); SODIUM SERUM 144 mmol/L (136-145); UREA NITROGEN, BLOOD 14 mg/dL (7-18)
[2024-10-15 18:56] LABS: HEMATOCRIT 19.4 % (31.2-41.9)
[2024-10-15 19:00] LABS: IRON, SERUM 9 ug/dL (50-175)
[2024-10-15 19:01] LABS: ALANINE AMINOTRANSFERASE 18 U/L (14-59); ALBUMIN 3.2 g/dL (3.4-5.0); ALKALINE PHOSPHATASE 89 U/L (50-136); ASPARTATE AMINOTRANSFERASE 12 U/L (15-37); BILIRUBIN,DIRECT 0.1 mg/dL (0.0-0.2); BILIRUBIN,TOTAL 0.2 mg/dL (0.2-1.0); LIPASE 34 U/L (16-77); TOTAL PROTEIN, SERUM 6.2 g/dL (6.4-8.2)
[2024-10-15 19:19] LABS: BAND % (MANUAL) 1 % (0-10); LYMPHOCYTES % (MANUAL) 22 % (20-40); MONOCYTES % (MANUAL) 10 % (2-10); NEUTROPHILS % (MANUAL) 67 % (42-75)
[2024-10-15 19:20] LABS: ANISOCYTOSIS 1+; PLATELET ESTIMATE ADEQUATE
[2024-10-15 19:21] LABS: HYPOCHROMASIA 1+
[2024-10-15 19:22] LABS: OVALOCYTES 1+; TEAR DROP CELLS OCC
[2024-10-15] MEDS ORDERED: ONDANSETRON 4 MG/2 ML VIAL IV PRN (20:30)
[2024-10-15 22:44] VITALS: BP 136/87; TEMP 98.9; O2SAT 97
[2024-10-15] MEDS: METOPROLOL TARTRATE 50 MG TABLET PO SCH (23:23)
[2024-10-15] MEDS: PANTOPRAZOLE SODIUM 40 MG VIAL ONE (23:38)
[2024-10-15] MEDS: PANTOPRAZOLE SODIUM IV 40 MG in IV DEXTROSE 5% 100 ML IV SCH (23:40)
[2024-10-16] MEDS: PANTOPRAZOLE SODIUM 40 MG VIAL ONE (04:34)
[2024-10-16 05:59] VITALS: BP 125/79; TEMP 98.6; O2SAT 94
[2024-10-16 07:46] LABS: BASOPHILS % (AUTO) 0.9 % (0.0-2.0); EOSINOPHILS # (AUTO) 0.2 K/uL (0.0-0.7); EOSINOPHILS % (AUTO) 3.5 % (0.0-7.0); HEMATOCRIT 21.8 % (31.2-41.9); LYMPHOCYTES # (AUTO) 1.5 K/uL (0.8-4.8); LYMPHOCYTES % (AUTO) 28.7 % (20.5-51.5); MEAN CORPUSCULAR HEMOGLOBIN 25.1 uug (24.7-32.8); MEAN CORPUSCULAR HGB CONC 32 g/dL (32.3-35.6); MEAN CORPUSCULAR VOLUME 77.6 fL (75.5-95.3); MONOCYTES # (AUTO) 0.7 K/uL (0.1-1.30); MONOCYTES % (AUTO) 14.3 % (0.0-11.0); NEUTROPHILS # (AUTO) 2.7 K/uL (1.8-8.9); NEUTROPHILS % (AUTO) 52.6 % (38.5-71.5); PLATELET COUNT (AUTO) 311 K/uL (179-408); RED BLOOD CELL COUNT(AUTO) 2.81 MIL/uL (3.63-4.92); WHITE BLOOD COUNT (AUTO) 5.1 K/uL (3.8-11.8)
[2024-10-16 07:55] LABS: DIFFERENTIAL COMMENT 1; HEMOGLOBIN 7.1 g/dL (10.9-14.3)
[2024-10-16 08:15] LABS: ALBUMIN 3.1 g/dL (3.4-5.0); BILIRUBIN,TOTAL 0.3 mg/dL (0.2-1.0); CALCIUM 8.1 mg/dL (8.5-10.1); CREATININE 0.7 mg/dL (0.6-1.3); POTASSIUM 4.1 mmol/L (3.5-5.1); TOTAL PROTEIN, SERUM 6.2 g/dL (6.4-8.2)
[2024-10-16 11:32] VITALS: BP 119/56; TEMP 98.1; O2SAT 96
[2024-10-16 13:28] LABS: HEMATOCRIT 22.6 % (31.2-41.9)
[2024-10-16] MEDS: SOD FERRIC GLUC COMPLX/SUCROSE 125 MG in IV NORMAL SALINE 100 ML IV SCH (14:16)
[2024-10-16] MEDS ORDERED: AMLO-212 PO (14:28)
[2024-10-16] MEDS ORDERED: PRAV40TA3 PO (14:28)
[2024-10-16] MEDS ORDERED: SUCR1TAB PO (14:30)
[2024-10-16 15:55] VITALS: BP 107/61; TEMP 98.9; O2SAT 95
[2024-10-16] MEDS: SUCRALFATE 1 G TABLET PO SCH (17:10)
[2024-10-16] MEDS: PANTOPRAZOLE SODIUM 40 MG VIAL IV SCH (17:11)
[2024-10-16 19:00] VITALS: BP 115/66; TEMP 98.6; O2SAT 94
[2024-10-16] MEDS: ATORVASTATIN 10 MG TABLET PO SCH (20:34)
[2024-10-16 21:20] LABS: HEMATOCRIT 21.8 % (31.2-41.9); HEMOGLOBIN 6.8 g/dL (10.9-14.3)
[2024-10-17 05:13] LABS: HEMATOCRIT 24.2 % (31.2-41.9)
[2024-10-17 05:19] LABS: HEMOGLOBIN 7.4 g/dL (10.9-14.3)
[2024-10-17 06:50] VITALS: BP 139/69; TEMP 97.1; O2SAT 95
[2024-10-17] MEDS: AMLODIPINE 5 MG TABLET PO SCH (08:53)
[2024-10-17 11:37] VITALS: BP 128/70; TEMP 98.3; O2SAT 94
[2024-10-17 13:15] LABS: HEMATOCRIT 24.4 % (31.2-41.9); HEMOGLOBIN 7.5 g/dL (10.9-14.3)
[2024-10-17 16:00] VITALS: BP 136/76; TEMP 97.9; O2SAT 96
[2024-10-17 19:53] VITALS: BP 135/75; TEMP 98.5; O2SAT 93
[2024-10-17 21:07] LABS: HEMATOCRIT 21.9 % (31.2-41.9)
[2024-10-17 21:14] LABS: HEMOGLOBIN 6.7 g/dL (10.9-14.3)
[2024-10-18] VITALS (9 sets, daily range): BP systolic 122–149; BP diastolic 58–83; TEMP 97.4–99; O2SAT 94–96
[2024-10-18 07:02] LABS: HEMATOCRIT 25.1 % (31.2-41.9)
[2024-10-18] MEDS: NUTRISOURCE FIBER 4 GM PACKET PO SCH (09:29)
[2024-10-18] MEDS: ACETAMINOPHEN 325 MG TABLET PO PRN (09:33)
[2024-10-18] MEDS: FUROSEMIDE 20 MG/2 ML VIAL IV ONE (11:22)
[2024-10-18 13:55] LABS: HEMATOCRIT 25.6 % (31.2-41.9); HEMOGLOBIN 8.2 g/dL (10.9-14.3)
[2024-10-18] MEDS: IV D5 1/2 NS 1000 ML 1,000 ML IV PRN (14:15)
[2024-10-18 21:53] LABS: HEMOGLOBIN 8.1 g/dL (10.9-14.3)
[2024-10-19 06:00] VITALS: BP 156/81; TEMP 97.9; O2SAT 95
[2024-10-19] MEDS: MORPHINE SULFATE 2 MG/1 ML DISP.SYRIN IVP PRN (06:30)
[2024-10-19 06:44] LABS: BASOPHILS % (AUTO) 0.7 % (0.0-2.0); DIFFERENTIAL COMMENT 0; EOSINOPHILS # (AUTO) 0.2 K/uL (0.0-0.7); EOSINOPHILS % (AUTO) 4.4 % (0.0-7.0); HEMATOCRIT 23.7 % (31.2-41.9); HEMOGLOBIN 7.7 g/dL (10.9-14.3); LYMPHOCYTES % (AUTO) 19.7 % (20.5-51.5); MEAN CORPUSCULAR HEMOGLOBIN 25.5 uug (24.7-32.8); MEAN CORPUSCULAR HGB CONC 33 g/dL (32.3-35.6); MEAN CORPUSCULAR VOLUME 78.1 fL (75.5-95.3); MONOCYTES # (AUTO) 0.6 K/uL (0.1-1.30); MONOCYTES % (AUTO) 12.3 % (0.0-11.0); NEUTROPHILS # (AUTO) 3.3 K/uL (1.8-8.9); NEUTROPHILS % (AUTO) 62.9 % (38.5-71.5); PLATELET COUNT (AUTO) 239 K/uL (179-408); RED BLOOD CELL COUNT(AUTO) 3.03 MIL/uL (3.63-4.92); RED CELL DISTRIBUTION WIDTH 18.8 % (12.3-17.7); WHITE BLOOD COUNT (AUTO) 5.3 K/uL (3.8-11.8)
[2024-10-19 07:03] LABS: ALBUMIN 3.2 g/dL (3.4-5.0); BILIRUBIN,TOTAL 0.4 mg/dL (0.2-1.0); CREATININE 0.6 mg/dL (0.6-1.3); PHOSPHOROUS 4.5 mg/dL (2.5-4.9); POTASSIUM 3.8 mmol/L (3.5-5.1); TOTAL PROTEIN, SERUM 6.3 g/dL (6.4-8.2)
[2024-10-19 10:46] VITALS: BP 160/77; TEMP 98.2; O2SAT 96
[2024-10-19] MEDS: hydrALAZINE HCL 20 MG/1 ML VIAL IV PRN (15:39)
[2024-10-19 15:42] VITALS: BP 170/86; TEMP 98.6; O2SAT 96
[2024-10-19] MEDS ORDERED: Morphine Sulfate Inj IVP (18:47)
[2024-10-19] MEDS ORDERED: ONDA4VIA23 IV (18:47)
[2024-10-19] MEDS ORDERED: PANT40VI IV (18:47)
[2024-10-19 19:00] VITALS: BP 144/74; TEMP 98.5; O2SAT 95
[2024-10-19] MEDS: ACETAMINOPHEN 325 MG TABLET PO PRN (19:41)
[2024-10-19] MEDS ORDERED: CLONIDINE-TTS 1 PATCH TD ONE (21:54)
[2024-10-19] MEDS: CLONIDINE-TTS 1 PATCH TD SCH (22:02)
[2024-10-20 06:00] VITALS: BP 158/91; TEMP 98.1; O2SAT 95
[2024-10-20 08:12] VITALS: BP 164/95; TEMP 98.1; O2SAT 95
[2024-10-20 11:08] LABS: BASOPHILS % (AUTO) 0.3 % (0.0-2.0); EOSINOPHILS # (AUTO) 0.2 K/uL (0.0-0.7); EOSINOPHILS % (AUTO) 2.7 % (0.0-7.0); HEMATOCRIT 27.6 % (31.2-41.9); HEMOGLOBIN 8.8 g/dL (10.9-14.3); LYMPHOCYTES # (AUTO) 0.9 K/uL (0.8-4.8); LYMPHOCYTES % (AUTO) 13.3 % (20.5-51.5); MEAN CORPUSCULAR HEMOGLOBIN 24.8 uug (24.7-32.8); MEAN CORPUSCULAR HGB CONC 32 g/dL (32.3-35.6); MONOCYTES # (AUTO) 0.6 K/uL (0.1-1.30); MONOCYTES % (AUTO) 9.2 % (0.0-11.0); NEUTROPHILS # (AUTO) 4.9 K/uL (1.8-8.9); NEUTROPHILS % (AUTO) 74.5 % (38.5-71.5); PLATELET COUNT (AUTO) 262 K/uL (179-408); RED BLOOD CELL COUNT(AUTO) 3.53 MIL/uL (3.63-4.92); WHITE BLOOD COUNT (AUTO) 6.6 K/uL (3.8-11.8)
[2024-10-20 11:16] VITALS: BP 130/82; TEMP 97.7; O2SAT 100
[2024-10-20 11:20] LABS: DIFFERENTIAL COMMENT 1
[2024-10-20] MEDS ORDERED: PANT40TA2 PO (14:12)
[2024-10-20] MEDS ORDERED: FERR324T17 PO (14:12)
[2024-10-20] MEDS ORDERED: AMLO5TAB4 PO (14:14)
[2024-10-20 15:34] VITALS: BP 120/74; TEMP 98.4; O2SAT 96
== END 2024-10-20 16:30 | disposition left against medical advice (07) | DRG 811 ==
LOC: ER 16:05 → MEDSURG3 20:50
PROVIDERS: ADMIT Internal Medicine; ATTEND Internal Medicine
PROC: 30233N1 Transfusion of Nonautologous Red Blood Cells into Peripheral Vein, Percutaneous Approach (ICD-10-PCS; principal; 2024-10-15)
PROC: 0DB98ZX Excision of Duodenum, Via Natural or Artificial Opening Endoscopic, Diagnostic (ICD-10-PCS; 2024-10-20)
PROC: 0DB68ZX Excision of Stomach, Via Natural or Artificial Opening Endoscopic, Diagnostic (ICD-10-PCS; 2024-10-20)
DX: D50.0 Iron deficiency anemia secondary to blood loss (chronic) (principal); K29.71 Gastritis, unspecified, with bleeding; K29.81 Duodenitis with bleeding; E44.1 Mild protein-calorie malnutrition; Z68.42 Body mass index [BMI] 45.0-49.9, adult; E66.01 Morbid (severe) obesity due to excess calories; F25.0 Schizoaffective disorder, bipolar type; K21.9 Gastro-esophageal reflux disease without esophagitis; E88.09 Other disorders of plasma-protein metabolism, not elsewhere classified; J44.9 Chronic obstructive pulmonary disease, unspecified; K44.9 Diaphragmatic hernia without obstruction or gangrene; I25.10 Atherosclerotic heart disease of native coronary artery without angina pectoris; I10 Essential (primary) hypertension; Z74.09 Other reduced mobility
CPT/HCPCS: 36415; 70030-TC; 71045; 82378; 83550; 83690; 83735; 84100; 84484; 85018; 85025; 85730; 86850; 86900; 86901; 86920; 88312-TC; 88313-TC; G0378; J0360; J1940; J2270; J2470; J2916; J7042; P9016